=== PATIENT | male | born 1940 | race Caucasian/White ===

== ENCOUNTER 2018-05-17 07:07 | Day surgery (SDC) | payer BC ==
[2018-05-17] VITALS (15 sets, daily range): BP systolic 103–129; BP diastolic 45–67; PULSE 54–79; TEMP 97.6–97.8
[~2018-05-17] VITALS: Ht 177.8 cm; Wt 74.5 kg
[2018-05-17] MEDS ORDERED: IMDUR 30MG30 MG/TAB PO ×2 (08:12→10:57)
[2018-05-17] MEDS ORDERED: ASPIRIN E.C. 8181 MG PO (08:12)
[2018-05-17] MEDS ORDERED: ASPI325T6 PO (08:13)
[2018-05-17 08:15] LABS: HEMATOCRIT 40.5 % (42.0-52.0); MEAN CELL VOLUME 97 fl (80.0-100.0); MEAN CORPUSCULAR HEMOGLOBIN 34 pg (27.0-31.0); MEAN CORPUSCULAR HGB CONC 35 g/dl (33.0-37.0); MEAN PLATELET VOLUME 10.1 fl (7.4-10.4); PLATELET COUNT 262 K/mm3 (130-400); RED BLOOD COUNT 4.18 M/mm3 (4.20-5.60); REDCELL DISTRIBUTION WIDTH-CV 12.5 % (11.5-14.5)
[2018-05-17] MEDS ORDERED: VITAMIN C500 MG PO (08:15)
[2018-05-17 08:17] LABS: CALCIUM 10.1 mg/dL (8.4-10.2); CREATININE, serum 1.2 mg/dL (0.66-1.25); POTASSIUM 4.3 mmol/L (3.4-5.0)
[2018-05-17] MEDS ORDERED: VITAMIN B125000 MCG PO (08:19)
[2018-05-17] MEDS ORDERED: VITAMIN D31000 I1 PO (08:20)
[2018-05-17 08:28] LABS: PROTHROMBIN TIME 11.5 SECONDS (9.7-12.8)
[2018-05-17] MEDS ORDERED: PRINIVIL5 MG PO (08:37)
[2018-05-17] MEDS ORDERED: FLOMAX 0.40.4 MG/CAP PO (08:38)
[2018-05-17] MEDS ORDERED: ULTRAM 50MG TAB50 MG PO (08:38)
[2018-05-17] MEDS ORDERED: PRILOSEC 20MG20 MG PO (08:38)
[2018-05-17] MEDS ORDERED: PLAVIX 75MG TAB75 MG PO (08:39)
[2018-05-17] MEDS ORDERED: ZETIA 10MG TAB10 MG PO (08:40)
[2018-05-17] MEDS ORDERED: K-DUR20 MEQ PO (08:40)
[2018-05-17] MEDS ORDERED: TOPROL XL 50MG50 MG PO (08:40)
[2018-05-17] MEDS ORDERED: ASPIRIN 81M81 MG/TA2 PO (10:58)
== END 2018-05-17 17:45 | disposition home or self-care (01) ==
LOC: COL.CAR 07:07
PROVIDERS: Internal Medicine Cardiovascular Disease
DX: I25.118 Atherosclerotic heart disease of native coronary artery with other forms of angina pectoris (principal); I11.0 Hypertensive heart disease with heart failure; I50.9 Heart failure, unspecified; E78.5 Hyperlipidemia, unspecified; F17.220 Nicotine dependence, chewing tobacco, uncomplicated; Z79.02 Long term (current) use of antithrombotics/antiplatelets; Z95.1 Presence of aortocoronary bypass graft; Z82.49 Family history of ischemic heart disease and other diseases of the circulatory system
CPT/HCPCS: J1644; J2250; J3010; Q9967